=== PATIENT | male | born 1970 | race Asian ===

== ENCOUNTER 2016-09-09 09:42 | Day surgery (SDC) | payer BC ==
[~2016-09-09] VITALS: Ht 172.7 cm; Wt 78.0 kg
[2016-09-09] MEDS ORDERED: FENTANYL PF 250 MCG/5ML ONE (09:54)
[2016-09-09] MEDS ORDERED: MIDAZOLAM 1 MG/ML, 2ML ONE (09:54)
[2016-09-09] MEDS ORDERED: LIDOCAINE 1%, 2ML ONE (10:16)
[2016-09-09] MEDS ORDERED: LACTATED RINGERS 1,000 ML IV SCH (10:18)
[2016-09-09] MEDS ORDERED: INSU100V SC (10:21)
[2016-09-09] MEDS ORDERED: LEVO150T47 PO (10:21)
[2016-09-09] MEDS ORDERED: ATOR10TA9 PO (10:21)
[2016-09-09 10:25] VITALS: BP 127/82
[2016-09-09] MEDS ORDERED: LIDOCAINE 1%, 2ML SQ PRN (10:30)
[2016-09-09] MEDS ORDERED: ACETAMINOPHEN 325 MG TABLET PO PRN (11:00)
[2016-09-09] MEDS ORDERED: PROMETHAZINE 25 MG/ML, 1ML IV PRN (11:00)
[2016-09-09] MEDS ORDERED: FENTANYL PF 100 MCG/2ML IV PRN (11:00)
[2016-09-09] MEDS ORDERED: HYDROmorphone 1 MG/ML, 1ML IV PRN (11:00)
[2016-09-09] MEDS ORDERED: OXYcodone 5 MG/5 ML ORAL.SOL UDC PO PRN (11:00)
[2016-09-09] MEDS ORDERED: ONDANSETRON 2MG/ML, 2ML IVPush PRN (11:00)
[2016-09-09] MEDS ORDERED: METOCLOPRAMIDE 5 MG/ML, 2ML IV PRN (11:00)
[2016-09-09] MEDS ORDERED: ROPIvacaine/PF 0.5%, 20 ML ONE (11:17)
[2016-09-09] MEDS ORDERED: ROCURONIUM 10 MG/ML ONE (11:45)
[2016-09-09] MEDS ORDERED: PROPOFOL 10 MG/ML, 20ML ONE (11:45)
[2016-09-09] MEDS ORDERED: CEFAZOLIN 1,000 MG ONE (11:45)
[2016-09-09 13:18] LABS: ASPARTATE AMINO TRANSFERASE 16 U/L (15-37); BLOOD UREA NITROGEN 14 mg/dL (7-18)
[2016-09-09] MEDS ORDERED: ONDANSETRON 2MG/ML, 2ML ONE (14:05)
[2016-09-09] MEDS ORDERED: HYDROmorphone 1 MG/ML, 1ML ONE (14:05)
[2016-09-09] MEDS ORDERED: PROMETHAZINE 25 MG/ML, 1ML ONE (14:25)
== END 2016-09-09 16:50 ==
LOC: OUT 09:42
PROVIDERS: ATTEND Orthopaedic Surgery
DX: S52.042A Displaced fracture of coronoid process of left ulna, initial encounter for closed fracture (principal); S52.022A Displaced fracture of olecranon process without intraarticular extension of left ulna, initial encounter for closed fracture; E11.9 Type 2 diabetes mellitus without complications; E03.9 Hypothyroidism, unspecified; Z79.4 Long term (current) use of insulin; X58.XXXA Exposure to other specified factors, initial encounter; Y93.89 Activity, other specified; Y92.89 Other specified places as the place of occurrence of the external cause; Y99.8 Other external cause status
CPT/HCPCS: 24685; 36415; 73070; 76001; 80053; 82962; J0690; J1170; J2250; J2405; J2550; J2704; J2795; J3010